=== PATIENT | male | born 1980 | race African-American/Black ===

== ENCOUNTER 2022-05-07 17:33 | Emergency (ER) | payer SELFPAY ==
[~2022-05-07] VITALS: Ht 182.9 cm; Wt 113.6 kg
[2022-05-07 18:27] VITALS: BP 115/95
[2022-05-07] MEDS ORDERED: HYDROcodone/acetaminophen 10/325mg tab PO STA (18:32)
[2022-05-07] MEDS ORDERED: ondansetron 4mg rapidly disintigrating tab PO STA (18:34)
[2022-05-07] MEDS ORDERED: ibuprofen tablet 400 MG TABLET PO ONE (20:15)
[2022-05-07] MEDS ORDERED: acetaminophen 325mg tablet PO ONE (20:15)
--- NOTE | 2022-05-07 20:21 | NUR ---
pt roomed at this time, connected to monitor in rm 11.
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
--- NOTE | 2022-05-07 20:41 | NUR ---
pt ambulated to restroom without assistance, demonstrating stable GAIT
== END 2022-05-07 22:12 | disposition home or self-care (01) ==
LOC: ER 17:34 → EDBD 17:34 → ER 22:12
DX: S00.03XA Contusion of scalp, initial encounter (principal); R51.9 Headache, unspecified; M54.2 Cervicalgia; Z72.89 Other problems related to lifestyle; Y08.89XA Assault by other specified means, initial encounter; Y93.89 Activity, other specified; Y92.89 Other specified places as the place of occurrence of the external cause; Y99.8 Other external cause status
CPT/HCPCS: 70450; 72125; 99284

== ENCOUNTER 2022-05-17 00:07 | Emergency (ER) | payer MEDICAID ==
[~2022-05-17] VITALS: Ht 182.9 cm; Wt 109.1 kg
[2022-05-17 00:14] VITALS: BP 144/93
--- NOTE | 2022-05-17 02:00 | NUR ---
Content Strategy Lead agrees with Dulce Black, TOMAS assessment.
[2022-05-17 02:07] LABS: CLARITY,URINE CLEAR (Clear); COLOR,URINE YELLOW (Yellow); GLUCOSE, URINE NEGATIVE (Neg); KETONES,URINE TRACE mg/dl (Neg); LEUKOCYTE ESTERASE ,URINE NEGATIVE (Neg); NITRITES, URINE NEGATIVE (Neg); OCCULT BLOOD,URINE NEGATIVE (Neg); PROTEIN,URINE NEGATIVE (Neg); UROBILINOGEN,URINE 0.2 E.U/dL (0.2-1.0)
[2022-05-17 02:09] LABS: BASOPHILS % (AUTO) 0.5 % (0-1); EOSINOPHILS # (AUTO) 0.3 X10'3 (0-0.9); EOSINOPHILS % (AUTO) 4.7 % (0-6); HEMATOCRIT 47.5 % (42.0-52.0); HEMOGLOBIN 16.3 g/dl (14.0-17.9); LYMPHOCYTES # (AUTO) 2.8 X10'3 (1.1-4.8); LYMPHOCYTES % (AUTO) 39.8 % (21-51); MEAN CORPUSCULAR HEMOGLOBIN 31.2 PG (27.0-31.0); MEAN CORPUSCULAR HGB CONC 34.2 g/dL (33.0-36.5); MEAN CORPUSCULAR VOLUME 91.2 FL (78-98); MEAN PLATELET VOLUME 9.6 FL (7.4-10.4); MONOCYTES # (AUTO) 0.5 X10'3 (0-0.9); MONOCYTES % (AUTO) 6.7 % (2-12); NEUTROPHILS # (AUTO) 3.4 X10'3 (1.8-7.7); NEUTROPHILS % (AUTO) 48.3 % (42-75); PLATELET COUNT 185 X10'3 (140-440); RED BLOOD COUNT 5.21 X10'6 (4.70-6.10); RED CELL DISTRIBUTION WIDTH 15.3 % (11.5-14.5); WHITE BLOOD COUNT 7.1 X10'3 (4.5-11.0)
[2022-05-17 02:12] LABS: UA COLLECTION TYPE VOIDED
[2022-05-17 02:25] LABS: ALANINE AMINOTRANSFERASE 47 U/L (12-78); ALBUMIN 4.2 G/DL (3.4-5.0); ALBUMIN/GLOBULIN RATIO 1.1 (1.1-1.5); ALKALINE PHOSPHATASE 124 IU/L (46-116); ANION GAP 18 (8-16); ASPARTATE AMINO TRANSFERASE 41 U/L (10-37); BILIRUBIN,TOTAL 0.3 MG/DL (0.1-1.0); BLOOD UREA NITROGEN 11 MG/DL (7-18); BUN/CREATININE RATIO 10.8 (5.4-32.0); CHLORIDE 103 MMOL/L (99-107); CREATININE 1.02 MG/DL (0.60-1.10); ETHANOL 0.237 GM/DL (0.0-0.010); GLUCOSE 125 MG/DL (70-104); POTASSIUM 3.6 MMOL/L (3.5-5.1); SODIUM 140 MMOL/L (135-145); TOTAL CARBON DIOXIDE 19.4 MMOL/L (24-32); TOTAL PROTEIN 7.9 G/DL (6.4-8.2); URINE AMPHETAMINE SCREEN NEGATIVE (Neg); URINE BARBITUATE SCREEN NEGATIVE (Neg); URINE BENZODIAZEPINES SCREEN NEGATIVE (Neg); URINE CANNABINOID SCREEN NEGATIVE (Neg); URINE COCAINE SCREEN NEGATIVE (Neg); URINE METHADONE SCREEN NEGATIVE (Neg); URINE OPIATE SCREEN NEGATIVE (Neg); URINE PHENCYCLIDINE SCREEN NEGATIVE (Neg); eGFR > 90 ML/MIN
[2022-05-17] MEDS ORDERED: diazepam inj 5 MG/ML inj. IV ONE (03:10)
--- NOTE | 2022-05-17 04:04 | NUR ---
emotional support dog at bedside.
[2022-05-17 05:06] LABS: ACETAMINOPHEN < 2.0 UG/ML (10-30)
--- NOTE | 2022-05-17 07:11 | NUR ---
pt brought over to overflow around 06:50 by tech tech inventoried pt belongings and placed them in the corresponding room number to locker number in room 27. [facility] to [facility] bracelet placed on pt.
[2022-05-17] MEDS ORDERED: chlordiazePOXIDE 25mg capsule PO ONE (08:10)
--- NOTE | 2022-05-17 08:58 | NUR ---
REJI SENT PT PACKT TO [facility]
== END 2022-05-17 15:28 | disposition home or self-care (01) ==
LOC: ER 00:09
DX: R45.851 Suicidal ideations (principal); Z20.822 Contact with and (suspected) exposure to COVID-19; F32.A Depression, unspecified; Z72.89 Other problems related to lifestyle
CPT/HCPCS: 36415; 80053; 80305; 80320; 80329; 81003; 85025; 87635; 96374; 99285; C9803; J3360

== ENCOUNTER 2022-06-25 13:02 | Emergency (ER) | payer MEDICAID ==
[~2022-06-25] VITALS: Ht 185.4 cm; Wt 118.2 kg
[2022-06-25 13:34] VITALS: BP 145/93
[2022-06-25 14:35] LABS: BASOPHILS % (AUTO) 0.5 % (0-1); EOSINOPHILS # (AUTO) 0.1 X10'3 (0-0.9); EOSINOPHILS % (AUTO) 1.3 % (0-6); HEMATOCRIT 42.7 % (42.0-52.0); HEMOGLOBIN 14.4 g/dl (14.0-17.9); LYMPHOCYTES # (AUTO) 1.7 X10'3 (1.1-4.8); LYMPHOCYTES % (AUTO) 17.9 % (21-51); MEAN CORPUSCULAR HEMOGLOBIN 30.8 PG (27.0-31.0); MEAN CORPUSCULAR HGB CONC 33.6 g/dL (33.0-36.5); MEAN CORPUSCULAR VOLUME 91.6 FL (78-98); MEAN PLATELET VOLUME 9.6 FL (7.4-10.4); MONOCYTES # (AUTO) 0.8 X10'3 (0-0.9); MONOCYTES % (AUTO) 8.4 % (2-12); NEUTROPHILS # (AUTO) 6.7 X10'3 (1.8-7.7); NEUTROPHILS % (AUTO) 71.9 % (42-75); PLATELET COUNT 166 X10'3 (140-440); RED BLOOD COUNT 4.66 X10'6 (4.70-6.10); WHITE BLOOD COUNT 9.3 X10'3 (4.5-11.0)
[2022-06-25 14:44] LABS: ALANINE AMINOTRANSFERASE 23 U/L (12-78); ALBUMIN 3.6 G/DL (3.4-5.0); ALKALINE PHOSPHATASE 141 IU/L (46-116); ANION GAP 8 (8-16); ASPARTATE AMINO TRANSFERASE 18 U/L (10-37); BILIRUBIN,TOTAL 0.4 MG/DL (0.1-1.0); BLOOD UREA NITROGEN 7 MG/DL (7-18); BUN/CREATININE RATIO 7.9 (5.4-32.0); CALCIUM 8.1 MG/DL (8.5-10.1); CHLORIDE 104 MMOL/L (99-107); CREATININE 0.89 MG/DL (0.60-1.10); GLUCOSE 96 MG/DL (70-104); POTASSIUM 3.5 MMOL/L (3.5-5.1); SODIUM 140 MMOL/L (135-145); TOTAL CARBON DIOXIDE 27.6 MMOL/L (24-32); TOTAL PROTEIN 7.1 G/DL (6.4-8.2); eGFR > 90 ML/MIN
[2022-06-25] MEDS ORDERED: KEP500T PO (19:29)
[2022-06-25] MEDS ORDERED: levetiracetam 250mg tablet PO ONE (19:35)
== END 2022-06-25 19:37 | disposition left against medical advice (07) ==
LOC: ER 13:02
DX: S00.532A Contusion of oral cavity, initial encounter (principal); Z88.8 Allergy status to other drugs, medicaments and biological substances; X58.XXXA Exposure to other specified factors, initial encounter; Y93.89 Activity, other specified; Y92.89 Other specified places as the place of occurrence of the external cause; Y99.8 Other external cause status
CPT/HCPCS: 36415; 70450; 80053; 85025; 99284